=== PATIENT | female | born 1985 | race Caucasian/White ===

== ENCOUNTER 2018-07-16 12:26 | Observation (INO) | payer MEDICAID ==
[2018-07-16] MEDS ORDERED: Sodium Chloride 0.9% 10 ML Syringe FLUSH PRN ×2 (12:29→14:06)
[2018-07-16] MEDS ORDERED: Sodium Chloride 0.9% 2.5 ML Syringe FLUSH PRN ×2 (12:29→14:06)
--- NOTE | 2018-07-16 12:35 | EDM.PDOC ---
ED HPI GENERAL MEDICAL PROBLEM - General Chief Complaint: Neuro Symptoms/Deficits Stated Complaint: POSSIBLE STROKE Time Seen by Provider: 07/16/18 12:33 Source of Information: Reports: Patient, Family History Limitations: Reports: Altered Mental Status - History of Present Illness INITIAL COMMENTS - FREE TEXT/NARRATIVE: HISTORY AND PHYSICAL: []33-year-old female presenting with altered mental status slurred of speech History of Present Illness: []Last known normal was last night when she went to bed This morning when she got up she had weakness to her arms and slurring of speech which now she denies but states it was quite evident Review of Systems: As per history of present illness and below otherwise all systems reviewed and negative. Past medical history: As per history of present illness and as reviewed below otherwise noncontributory. Surgical history: As per history of present illness and as reviewed below otherwise noncontributory. Social history: No reported history of drug or alcohol abuse. Family history: As per history of present illness and as reviewed below otherwise noncontributory. Physical exam: Alert female answering questions with short sentences. HEENT: Atraumatic, normocehpalic, pupils reactive, negative for conjunctival pallor or scleral icterus, mucous membranes moist, throat clear, neck supple, nontender, trachea midline. Lungs: Clear to auscultation, breath sounds equal bilaterally, chest non tender. Heart: S1S2, regular, negative for clicks, rubs, or JVD. Abdomen: Soft, nondistended, nontender. Negative for masses or hepatossplenmegaly. Negative for costovertebral tenderness. Pelvis: Stable nontender. Genitourinary: Deferred. Rectal: Deferred Extremities: Atraumatic, negative for cords or calf pain. Neurovascular unremarkable. Neuro: Awake, alert, oriented. Cranial nerves II through XII unremarkable. Cerebellum unremarkable. Motor and sensory unremarkable throughout. Exam nonfocal. 1242 CT reported as normal no bleed noted no masses no lesions Patient's said that she woke up and was fine and the phone rang it was a healthcare recruiter to talk about her oldest son who wants to join [employer] and symptoms started I spoke with Dr. Encarnacion for Dr. Nolasco who has accepted this patient for observation Diagnostics: []CBC CMP PT/INR EKG head CT Therapeutics: []Normal saline Impression: []TIA Plan: []Refer to observation on telemetry Definitive disposition and diagnosis as appropriate pending reevaluation and review of above. Onset: Today, Sudden - Related Data Allergies Allergy/AdvReac Type Severity Reaction Status Date / Time Penicillins Allergy Hives Verified 07/16/18 12:59 Home Meds: Home Meds Losartan [Cozaar] 25 mg PO DAILY 07/16/18 [History] Zolpidem Tartrate [Ambien] 5 mg PO DAILY 07/16/18 [History] amLODIPine [Norvasc] 2.5 mg PO DAILY 07/16/18 [History] ED ROS GENERAL - Review of Systems Review Of Systems: See Below ED EXAM, NEURO - Physical Exam Exam: See Below EKG INTERPRETATION EKG Date: 07/16/18 Rhythm: NSR Comparison: NA - No Prior EKG Course - Vital Signs Last Recorded V/S: Last Vital Signs Temp 36.8 C 07/16/18 12:26 Pulse 118 H 07/16/18 12:26 Resp 18 07/16/18 12:26 BP 192/107 H 07/16/18 12:26 Pulse Ox 98 07/16/18 12:26 - Orders/Labs/Meds Orders: Active Orders 24 hr Category Date Time Status Patient Status [ADT] Stat ADT 07/16/18 13:57 Ordered Assess Neurological Status [RC] ASDIRECTED Care 07/16/18 12:29 Active Bedrest [RC] ASDIRECTED Care 07/16/18 12:29 Active Blood Glucose Check, Bedside [RC] STAT Care 07/16/18 12:29 Active Cardiac Monitoring [RC] . DIRECTED Care 07/16/18 12:29 Active EKG Documentation Completion [RC] STAT Care 07/16/18 12:29 Active Height and Weight [RC] UPON Care 07/16/18 12:29 Active Initiate Acute Stroke Protocol [RC] STAT Care 07/16/18 12:29 Active NIH Stroke Scale [RC] ASDIRECTED Care 07/16/18 12:29 Active Nursing Bedside Swallow Screen [RC] ASDIRECTED Care 07/16/18 12:29 Active Oxygen Therapy [RC] ASDIRECTED Care 07/16/18 12:29 Active Stroke Education, General [RC] Click to Edit Care 07/16/18 12:29 Active Vital Signs [RC] Q15M Care 07/16/18 12:29 Active COMPREHENSIVE METABOLIC PN,CMP [CHEM] Stat Lab 07/16/18 12:25 Results TROPONIN I [CHEM] Stat Lab 07/16/18 12:25 Results TSH [CHEM] Stat Lab 07/16/18 12:25 Results Sodium Chloride 0.9% [Saline Flush] Med 07/16/18 12:29 Active 10 ml FLUSH ASDIRECTED PRN Sodium Chloride 0.9% [Saline Flush] Med 07/16/18 12:29 Active 2.5 ml FLUSH ASDIRECTED PRN Peripheral IV Insertion Adult [OM.PC] Stat Oth 07/16/18 12:29 Ordered Peripheral IV Insertion Adult [OM.PC] Stat Ot 07/16/18 12:29 Ordered Resuscitation Status Stat Resus Stat 07/16/18 12:29 Ordered Medication Orders Sodium Chloride (Saline Flush) 10 ml FLUSH ASDIRECTED PRN PRN Reason: Keep Vein Open Sodium Chloride (Saline Flush) 2.5 ml FLUSH ASDIRECTED PRN PRN Reason: Keep Vein Open Labs: Laboratory Tests 07/16/18 07/16/18 07/16/18 Range/Units 12:25 12:25 12:25 WBC 7.72 (4.0-11.0) K/uL RBC 4.83 (4.30-5.90) M/uL Hgb 14.9 (12.0-16.0) g/dL Hct 43.5 (36.0-46.0) % MCV 90.1 (80.0-98.0) fL MCH 30.8 (27.0-32.0) pg MCHC 34.3 (31.0-37.0) g/dL RDW Std Deviation 49.0 (28.0-62.0) fl RDW Coeff of [place] 15 (11.0-15.0) % Plt Count 245 (150-400) K/uL MPV 9.10 (7.40-12.00) fL Neut % (Auto) 61.7 (48.0-80.0) % Lymph % (Auto) 29.7 (16.0-40.0) % [place] % (Auto) 7.1 (0.0-15.0) % Eos % (Auto) 1.2 (0.0-7.0) % Baso % (Auto) 0.3 (0.0-1.5) % Neut # (Auto) 4.8 (1.4-5.7) K/uL Lymph # (Auto) 2.3 (0.6-2.4) K/uL [place] # (Auto) 0.6 (0.0-0.8) K/uL Eos # (Auto) 0.1 (0.0-0.7) K/uL Baso # (Auto) 0.0 (0.0-0.1) K/uL Nucleated RBC % 0.0 /100WBC Nucleated RBCs # 0 K/uL INR 0.98 APTT 25.6 (18.6-31.3) SEC Sodium 139 (136-145) mmol/L Potassium 3.9 (3.5-5.1) mmol/L Chloride 103 (98-107) mmol/L Carbon Dioxide 21.8 (21.0-32.0) mmol/L BUN 17 (7.0-18.0) mg/dL Creatinine 1.2 H (0.6-1.0) mg/dL Est Cr Clr Drug Dosing 61.26 mL/min Estimated GFR (MDRD) 51.1 ml/min Glucose 115 H (74-106) mg/dL Calcium 9.3 (8.5-10.1) mg/dL Total Bilirubin 0.3 (0.2-1.0) mg/dL AST 14 L (15-37) IU/L ALT 27 (14-63) IU/L Alkaline Phosphatase 105 (46-116) U/L Troponin I < 0.050 (0.000-0.056) ng/mL Total Protein 8.0 (6.4-8.2) g/dL Albumin 4.2 (3.4-5.0) g/dL Globulin 3.8 H (2.0-3.5) g/dL Albumin/Globulin Ratio 1.1 L (1.3-2.8) Urine Color Urine Appearance Urine pH (5.0-8.0) Ur Specific [place] (1.001-1.035) Urine Protein (NEGATIVE) mg/dL Urine Glucose (UA) (NEGATIVE) mg/dL Urine Ketones (NEGATIVE) mg/dL Urine Occult Blood (NEGATIVE) Urine Nitrite (NEGATIVE) Urine Bilirubin (NEGATIVE) Urine Urobilinogen (<2.0) EU/dL Ur Leukocyte Esterase (NEGATIVE) Urine RBC (0-2/HPF) Urine WBC (0-5/HPF) Ur Epithelial Cells (NONE-FEW) Amorphous Sediment (NEGATIVE) Urine Bacteria (NEGATIVE) 07/16/18 Range/Units 13:21 WBC (4.0-11.0) K/uL RBC (4.30-5.90) M/uL Hgb (12.0-16.0) g/dL Hct (36.0-46.0) % MCV (80.0-98.0) fL MCH (27.0-32.0) pg MCHC (31.0-37.0) g/dL RDW Std Deviation (28.0-62.0) fl RDW Coeff of [place] (11.0-15.0) % Plt Count (150-400) K/uL MPV (7.40-12.00) fL Neut % (Auto) (48.0-80.0) % Lymph % (Auto) (16.0-40.0) % [place] % (Auto) (0.0-15.0) % Eos % (Auto) (0.0-7.0) % Baso % (Auto) (0.0-1.5) % Neut # (Auto) (1.4-5.7) K/uL Lymph # (Auto) (0.6-2.4) K/uL [place] # (Auto) (0.0-0.8) K/uL Eos # (Auto) (0.0-0.7) K/uL Baso # (Auto) (0.0-0.1) K/uL Nucleated RBC % /100WBC Nucleated RBCs # K/uL INR APTT (18.6-31.3) SEC Sodium (136-145) mmol/L Potassium (3.5-5.1) mmol/L Chloride (98-107) mmol/L Carbon Dioxide (21.0-32.0) mmol/L BUN (7.0-18.0) mg/dL Creatinine (0.6-1.0) mg/dL Est Cr Clr Drug Dosing mL/min Estimated GFR (MDRD) ml/min Glucose (74-106) mg/dL Calcium (8.5-10.1) mg/dL Total Bilirubin (0.2-1.0) mg/dL AST (15-37) IU/L ALT (14-63) IU/L Alkaline Phosphatase (46-116) U/L Troponin I (0.000-0.056) ng/mL Total Protein (6.4-8.2) g/dL Albumin (3.4-5.0) g/dL Globulin (2.0-3.5) g/dL Albumin/Globulin Ratio (1.3-2.8) Urine Color YELLOW Urine Appearance SLT CLOUDY Urine pH 6.0 (5.0-8.0) Ur Specific [place] 1.020 (1.001-1.035) Urine Protein NEGATIVE (NEGATIVE) mg/dL Urine Glucose (UA) NEGATIVE (NEGATIVE) mg/dL Urine Ketones NEGATIVE (NEGATIVE) mg/dL Urine Occult Blood TRACE-INTACT (NEGATIVE) Urine Nitrite POSITIVE H (NEGATIVE) Urine Bilirubin NEGATIVE (NEGATIVE) Urine Urobilinogen 0.2 (<2.0) EU/dL Ur Leukocyte Esterase LARGE (NEGATIVE) Urine RBC 0-2 (0-2/HPF) Urine WBC 40-50 (0-5/HPF) Ur Epithelial Cells FEW (NONE-FEW) Amorphous Sediment FEW (NEGATIVE) Urine Bacteria 1+ H (NEGATIVE) Meds: Medications Generic Name Dose Route Start Last Admin Trade Name Freq PRN Reason Stop Dose Admin Sodium Chloride 10 ml 07/16/18 12:29 Saline Flush FLUSH ASDIRECTED PRN Keep Vein Open Sodium Chloride 2.5 ml 07/16/18 12:29 Saline Flush FLUSH ASDIRECTED PRN Keep Vein Open Discontinued Medications Generic Name Dose Route Start Last Admin Trade Name Freq PRN Reason Stop Dose Admin Lorazepam 1 mg 07/16/18 12:48 07/16/18 13:08 Ativan IVPUSH 07/16/18 12:49 1 mg ONETIME ONE Administration Departure - Departure Time of Disposition: 14:00 Disposition: Refer to Observation Condition: Fair Clinical Impression: TIA (transient ischemic attack) - Discharge Information Referrals: PCP,None [Primary Care Provider] - Forms: ED Department Discharge - My Orders Last 24 Hours: My Active Orders 07/16/18 12:25 COMPREHENSIVE METABOLIC PN,CMP [CHEM] Stat TROPONIN I [CHEM] Stat TSH [CHEM] Stat 07/16/18 12:29 Assess Neurological Status [RC] ASDIRECTED Bedrest [RC] ASDIRECTED Blood Glucose Check, Bedside [RC] STAT Cardiac Monitoring [RC] . DIRECTED EKG Documentation Completion [RC] STAT Height and Weight [RC] UPON Initiate Acute Stroke Protocol [RC] STAT NIH Stroke Scale [RC] ASDIRECTED Nursing Bedside Swallow Screen [RC] ASDIRECTED Oxygen Therapy [RC] ASDIRECTED Stroke Education, General [RC] Click to Edit Vital Signs [RC] Q15M Sodium Chloride 0.9% [Saline Flush] 10 ml FLUSH ASDIRECTED PRN Sodium Chloride 0.9% [Saline Flush] 2.5 ml FLUSH ASDIRECTED PRN Peripheral IV Insertion Adult [OM.PC] Stat Peripheral IV Insertion Adult [OM.PC] Stat Resuscitation Status Stat 07/16/18 13:57 Patient Status [ADT] Stat - Assessment/Plan Last 24 Hours: My Active Orders 07/16/18 12:25 COMPREHENSIVE METABOLIC PN,CMP [CHEM] Stat TROPONIN I [CHEM] Stat TSH [CHEM] Stat 07/16/18 12:29 Assess Neurological Status [RC] ASDIRECTED Bedrest [RC] ASDIRECTED Blood Glucose Check, Bedside [RC] STAT Cardiac Monitoring [RC] . DIRECTED EKG Documentation Completion [RC] STAT Height and Weight [RC] UPON Initiate Acute Stroke Protocol [RC] STAT NIH Stroke Scale [RC] ASDIRECTED Nursing Bedside Swallow Screen [RC] ASDIRECTED Oxygen Therapy [RC] ASDIRECTED Stroke Education, General [RC] Click to Edit Vital Signs [RC] Q15M Sodium Chloride 0.9% [Saline Flush] 10 ml FLUSH ASDIRECTED PRN Sodium Chloride 0.9% [Saline Flush] 2.5 ml FLUSH ASDIRECTED PRN Peripheral IV Insertion Adult [OM.PC] Stat Peripheral IV Insertion Adult [OM.PC] Stat Resuscitation Status Stat 07/16/18 13:57 Patient Status [ADT] Stat
--- NOTE | 2018-07-16 12:45 | CT ---
EXAMINATION: Non contrast CT head. Coronal and sagittal reformats. HISTORY: Stroke code FINDINGS: No evidence of intra or extra axial hemorrhage, mass, midline shift, hydrocephalus or edema. No hypoattenuation changes in the major vascular territories to suggest acute infarct. No abnormal intracranial calcifications are detected. No evidence of substantial vascular calcificat ions. Paranasal sinuses are well aerated without substantial findings. Trace fluid within the left mastoid air cells. Pituitary fossa appears unremarkable. Calvarium is intact. No evidence of skull fracture. IMPRESSION: 1. No acute intracranial findings. The findings were called to the ER at 12:42 PM.
[2018-07-16] MEDS ORDERED: LORazepam 2 MG/ML SDV IVPUSH ONE (12:48)
[2018-07-16 13:25] LABS: CHLORIDE,CL 103 mmol/L (98-107); SODIUM,NA 139 mmol/L (136-145)
[2018-07-16] MEDS ORDERED: Acetaminophen 325 MG Tab PO PRN (14:03)
[2018-07-16] MEDS ORDERED: Morphine 10 MG/ML Syringe IVPUSH PRN (14:06)
[2018-07-16] MEDS ORDERED: Ondansetron 4 MG/2 ML SDV IVPUSH PRN (14:06)
[2018-07-16] MEDS ORDERED: Enoxaparin 40 MG/0.4 ML Syringe SUBCUT SCH (14:15)
[2018-07-16] MEDS ORDERED: Morphine 2 MG/ML Syringe IVPUSH PRN (17:17)
[2018-07-16] MEDS ORDERED: Levofloxacin/Dextrose 5%-Water 750 MG in Premix Bag 1 BAG IV SCH (17:30)
--- NOTE | 2018-07-16 18:48 | PCM.HP ---
H&P History of Present Illness - General Date of Service: 07/16/18 Admit Problem/Dx: Admission Diagnosis/Problem Admission Diagnosis/Problem TIA, Transient ischemic attack - History of Present Illness Initial Comments - Free Text/Narative: This is a 33-year-old female that is admitted for TIA/stroke workup. Patient and state that this morning patient had become increasingly stressed as her son is going of to the in a year and this resulted in increased anxiety and possible panic attack and patient's felt that she had started to slur her speech and appeared to possibly have some neurological dysfunction in her left eye region. He denied any facial droop. Patient has never had neurological dysfunction such as this in the past, she's never had any cerebrovascular event in the past, she is being treated for resistant hypertension on 3 separate antihypertensives. Patient also has a significant clinical history of migraine headaches which are stress-induced however she does deny having a headache throughout the entire day today. CT of the head does not show any acute changes. The urinary analysis does indicate a possible urinary tract infection patient is denying any burning on urination, urine culture has been obtained and the patient has been placed on Levaquin. Patient' s blood pressures have normalized since she is arrived on the floor. - Related Data Allergies/Adverse Reactions: Allergies Allergy/AdvReac Type Severity Reaction Status Date / Time Penicillins Allergy Anaphylactic Verified 07/16/18 15:46 Shock Home Medications: Home Meds Losartan [Cozaar] 100 mg PO DAILY 07/16/18 [History] Mirtazapine 45 mg PO BEDTIME 07/16/18 [History] Zolpidem Tartrate [Ambien] 10 mg PO BEDTIME PRN 07/16/18 [History] amLODIPine [Norvasc] 10 mg PO DAILY 07/16/18 [History] hydroCHLOROthiazide [Hydrochlorothiazide] 12.5 mg PO DAILY 07/16/18 [History] Past Medical History - Past Health History Medical/Surgical History: Denies Medical/Surgical History Cardiovascular History: Reports: Hypertension Psychiatric History: Reports: Anxiety, Depression - Infectious Disease History Infectious Disease History: Reports: Chicken Pox, MRSA - Past Surgical History Cardiovascular Surgical History: Reports: None Social & Family History - Family History Family Medical History: Noncontributory - Tobacco Use Smoking Status *Q: Never Smoker Tobacco Use Comment: pt vapes Second Hand Smoke Exposure: No - Caffeine Use Caffeine Use: Reports: Other Caffeine Use Comment: not very often - Recreational Drug Use Recreational Drug Use: No H&P Review of Systems - Review of Systems: Review Of Systems: ROS reveals no pertinent complaints other than HPI. Exam - Exam Exam: See Below - Vital Signs Vital Signs: Last Vital Signs Temp 36.8 C 07/16/18 14:43 Pulse 112 H 07/16/18 14:43 Resp 18 07/16/18 14:43 BP 137/92 H 07/16/18 14:43 Pulse Ox 98 07/16/18 14:43 Weight: 73.709 kg - Exam General: Alert, Oriented, Cooperative HEENT: Conjunctiva Clear Neck: Supple, Trachea Midline Lungs: Clear to Auscultation, Normal Respiratory Effort Cardiovascular: Regular Rate, Regular Rhythm GI/Abdominal Exam: Normal Bowel Sounds Back Exam: Normal Inspection Extremities: Normal Inspection, Normal Range of Motion, Non-Tender, No Pedal Edema Skin: Warm, Dry, Intact Neurological: Cranial Nerves Intact, Reflexes Equal Bilateral, Strength Equal Bilateral, Normal Gait, Normal Speech, Normal Tone, Sensation Intact Neuro Extensive - Mental Status: Alert, Oriented x3, Normal Mood/Affect Neuro Extensive - Motor, Sensory, Reflexes: CN II-XII Intact, Normal Gait, Normal Reflexes - Patient Data Lab Results Last 24 hrs: Laboratory Results - last 24 hr 07/16/18 07/16/18 07/16/18 Range/Units 12:25 12:25 12:25 WBC 7.72 (4.0-11.0) K/uL RBC 4.83 (4.30-5.90) M/uL Hgb 14.9 (12.0-16.0) g/dL Hct 43.5 (36.0-46.0) % MCV 90.1 (80.0-98.0) fL MCH 30.8 (27.0-32.0) pg MCHC 34.3 (31.0-37.0) g/dL RDW Std Deviation 49.0 (28.0-62.0) fl RDW Coeff of [place] 15 (11.0-15.0) % Plt Count 245 (150-400) K/uL MPV 9.10 (7.40-12.00) fL Neut % (Auto) 61.7 (48.0-80.0) % Lymph % (Auto) 29.7 (16.0-40.0) % [place] % (Auto) 7.1 (0.0-15.0) % Eos % (Auto) 1.2 (0.0-7.0) % Baso % (Auto) 0.3 (0.0-1.5) % Neut # (Auto) 4.8 (1.4-5.7) K/uL Lymph # (Auto) 2.3 (0.6-2.4) K/uL [place] # (Auto) 0.6 (0.0-0.8) K/uL Eos # (Auto) 0.1 (0.0-0.7) K/uL Baso # (Auto) 0.0 (0.0-0.1) K/uL Nucleated RBC % 0.0 /100WBC Nucleated RBCs # 0 K/uL INR 0.98 APTT 25.6 (18.6-31.3) SEC Sodium 139 (136-145) mmol/L Potassium 3.9 (3.5-5.1) mmol/L Chloride 103 (98-107) mmol/L Carbon Dioxide 21.8 (21.0-32.0) mmol/L BUN 17 (7.0-18.0) mg/dL Creatinine 1.2 H (0.6-1.0) mg/dL Est Cr Clr Drug Dosing 61.26 mL/min Estimated GFR (MDRD) 51.1 ml/min Glucose 115 H (74-106) mg/dL Calcium 9.3 (8.5-10.1) mg/dL Total Bilirubin 0.3 (0.2-1.0) mg/dL AST 14 L (15-37) IU/L ALT 27 (14-63) IU/L Alkaline Phosphatase 105 (46-116) U/L Troponin I < 0.050 (0.000-0.056) ng/mL Total Protein 8.0 (6.4-8.2) g/dL Albumin 4.2 (3.4-5.0) g/dL Globulin 3.8 H (2.0-3.5) g/dL Albumin/Globulin Ratio 1.1 L (1.3-2.8) TSH 3rd Generation 2.52 (0.36-3.74) uIU/mL Urine Color Urine Appearance Urine pH (5.0-8.0) Ur Specific [place] (1.001-1.035) Urine Protein (NEGATIVE) mg/dL Urine Glucose (UA) (NEGATIVE) mg/dL Urine Ketones (NEGATIVE) mg/dL Urine Occult Blood (NEGATIVE) Urine Nitrite (NEGATIVE) Urine Bilirubin (NEGATIVE) Urine Urobilinogen (<2.0) EU/dL Ur Leukocyte Esterase (NEGATIVE) Urine RBC (0-2/HPF) Urine WBC (0-5/HPF) Ur Epithelial Cells (NONE-FEW) Amorphous Sediment (NEGATIVE) Urine Bacteria (NEGATIVE) 07/16/18 Range/Units 13:21 WBC (4.0-11.0) K/uL RBC (4.30-5.90) M/uL Hgb (12.0-16.0) g/dL Hct (36.0-46.0) % MCV (80.0-98.0) fL MCH (27.0-32.0) pg MCHC (31.0-37.0) g/dL RDW Std Deviation (28.0-62.0) fl RDW Coeff of [place] (11.0-15.0) % Plt Count (150-400) K/uL MPV (7.40-12.00) fL Neut % (Auto) (48.0-80.0) % Lymph % (Auto) (16.0-40.0) % [place] % (Auto) (0.0-15.0) % Eos % (Auto) (0.0-7.0) % Baso % (Auto) (0.0-1.5) % Neut # (Auto) (1.4-5.7) K/uL Lymph # (Auto) (0.6-2.4) K/uL [place] # (Auto) (0.0-0.8) K/uL Eos # (Auto) (0.0-0.7) K/uL Baso # (Auto) (0.0-0.1) K/uL Nucleated RBC % /100WBC Nucleated RBCs # K/uL INR APTT (18.6-31.3) SEC Sodium (136-145) mmol/L Potassium (3.5-5.1) mmol/L Chloride (98-107) mmol/L Carbon Dioxide (21.0-32.0) mmol/L BUN (7.0-18.0) mg/dL Creatinine (0.6-1.0) mg/dL Est Cr Clr Drug Dosing mL/min Estimated GFR (MDRD) ml/min Glucose (74-106) mg/dL Calcium (8.5-10.1) mg/dL Total Bilirubin (0.2-1.0) mg/dL AST (15-37) IU/L ALT (14-63) IU/L Alkaline Phosphatase (46-116) U/L Troponin I (0.000-0.056) ng/mL Total Protein (6.4-8.2) g/dL Albumin (3.4-5.0) g/dL Globulin (2.0-3.5) g/dL Albumin/Globulin Ratio (1.3-2.8) TSH 3rd Generation (0.36-3.74) uIU/mL Urine Color YELLOW Urine Appearance SLT CLOUDY Urine pH 6.0 (5.0-8.0) Ur Specific [place] 1.020 (1.001-1.035) Urine Protein NEGATIVE (NEGATIVE) mg/dL Urine Glucose (UA) NEGATIVE (NEGATIVE) mg/dL Urine Ketones NEGATIVE (NEGATIVE) mg/dL Urine Occult Blood TRACE-INTACT (NEGATIVE) Urine Nitrite POSITIVE H (NEGATIVE) Urine Bilirubin NEGATIVE (NEGATIVE) Urine Urobilinogen 0.2 (<2.0) EU/dL Ur Leukocyte Esterase LARGE (NEGATIVE) Urine RBC 0-2 (0-2/HPF) Urine WBC 40-50 (0-5/HPF) Ur Epithelial Cells FEW (NONE-FEW) Amorphous Sediment FEW (NEGATIVE) Urine Bacteria 1+ H (NEGATIVE) Result Diagrams: 07/16/18 12:25 07/16/18 12:25 Problem List Initiated/Reviewed/Updated: Yes Orders Last 24hrs: Active Orders 24 hr Category Date Time Status Patient Status [ADT] Stat ADT 07/16/18 13:57 Active Assess Neurological Status [RC] ASDIRECTED Care 07/16/18 12:29 Active Communication Order [RC] ASDIRECTED Care 07/16/18 14:03 Active Head of Bed Elevation [RC] ASDIRECTED Care 07/16/18 14:03 Active NIH Stroke Scale [RC] ASDIRECTED Care 07/16/18 12:29 Active Notify Provider Status Change [RC] ASDIRECTED Care 07/16/18 14:03 Active Notify Provider Vital Signs [RC] ASDIRECTED Care 07/16/18 14:03 Active Nursing Bedside Swallow Screen [RC] ASDIRECTED Care 07/16/18 12:29 Active Stroke Education, General [RC] Click to Edit Care 07/16/18 12:29 Active Telemetry Monitoring [Cardiac Monitoring] [RC] . Care 07/16/18 14:05 Active DIRECTED Up With Assistance [RC] ASDIRECTED Care 07/16/18 14:06 Active VTE/DVT Education [RC] PER UNIT ROUTINE Care 07/16/18 14:06 Active PT Evaluation and Treatment [CONS] Routine Cons 07/16/18 14:03 Active [employer] Evaluation and Treatment [CONS] Routine Cons 07/16/18 14:04 Active Heart Healthy Diet [DIET] Diet 07/17/18 Breakfast Active CULTURE URINE [RM] Stat Lab 07/16/18 13:21 Received Acetaminophen [Tylenol] Med 07/16/18 14:03 Active 650 mg PO Q4H PRN Enoxaparin [Lovenox] Med 07/16/18 14:15 Active 40 mg SUBCUT Q24H Levofloxacin/Dextrose 5%-Water [Levaquin in D5W 750 MG/ Med 07/16/18 17:30 Active 150 ML] 750 mg Premix Bag 1 bag IV Q24H Morphine Med 07/16/18 17:17 Active 2 mg IVPUSH Q2H PRN Ondansetron [Zofran] Med 07/16/18 14:06 Active 4 mg IVPUSH Q4H PRN Sodium Chloride 0.9% [Saline Flush] Med 07/16/18 12:29 Active 10 ml FLUSH ASDIRECTED PRN Sodium Chloride 0.9% [Saline Flush] Med 07/16/18 14:06 Active 10 ml FLUSH ASDIRECTED PRN Sodium Chloride 0.9% [Saline Flush] Med 07/16/18 12:29 Active 2.5 ml FLUSH ASDIRECTED PRN Sodium Chloride 0.9% [Saline Flush] Med 07/16/18 14:06 Active 2.5 ml FLUSH ASDIRECTED PRN atorvaSTATin [Lipitor] Med 07/16/18 21:00 Active 10 mg PO BEDTIME Peripheral IV Insertion Adult [OM.PC] Stat Oth 07/16/18 12:29 Ordered Peripheral IV Insertion Adult [OM.PC] Stat Oth 07/16/18 12:29 Ordered Saline Lock Insert [OM.PC] Routine Ot 07/16/18 14:06 Ordered Sequential Compression Device [OM.PC] Per Unit Routine Ot 07/16/18 14:06 Ordered Resuscitation Status Stat Resus Stat 07/16/18 12:29 Ordered Medication Orders Acetaminophen (Tylenol) 650 mg PO Q4H PRN PRN Reason: Fever Atorvastatin Calcium (Lipitor) 10 mg PO BEDTIME MATI Enoxaparin Sodium (Lovenox) 40 mg SUBCUT Q24H [facility] Last Admin: 07/16/18 15:44 Dose: 40 mg Levofloxacin/Dextrose 750 mg/ (Premix) 150 mls @ 100 mls/hr IV Q24H [facility] Last Admin: 07/16/18 18:33 Dose: 100 mls/hr Morphine Sulfate (Morphine) 2 mg IVPUSH Q2H PRN PRN Reason: Pain (severe 7-10) Stop: 07/17/18 14:07 Ondansetron HCl (Zofran) 4 mg IVPUSH Q4H PRN PRN Reason: Nausea/Vomiting Sodium Chloride (Saline Flush) 10 ml FLUSH ASDIRECTED PRN PRN Reason: Keep Vein Open Sodium Chloride (Saline Flush) 2.5 ml FLUSH ASDIRECTED PRN PRN Reason: Keep Vein Open Sodium Chloride (Saline Flush) 10 ml FLUSH ASDIRECTED PRN PRN Reason: Keep Vein Open Sodium Chloride (Saline Flush) 2.5 ml FLUSH ASDIRECTED PRN PRN Reason: Keep Vein Open Assessment/Plan Comment:: 3-year-old female presenting with acute neurological changes that resolved since arriving in the ER most likely etiology is a anxiety/panic attack versus possible migraine induced changes however patient will be assessed for any new onset focal neurological deficits that would indicate a possible TIA or for any cardiovascular related issue. Neuro checks every 4 hours, patient placed on telemetry, Labs in the a.m. anticipated discharge tomorrow if everything is within normal limits.
[2018-07-16] MEDS ORDERED: atorvaSTATin 10 MG Tab PO SCH (21:00)
== END 2018-07-17 12:15 | disposition home or self-care (01) ==
LOC: MW.ED 12:26 → MW.MS 13:57
PROVIDERS: ADMIT Internal Medicine; ATTEND Internal Medicine
DX: G45.9 Transient cerebral ischemic attack, unspecified (principal); N39.0 Urinary tract infection, site not specified; I10 Essential (primary) hypertension; F17.290 Nicotine dependence, other tobacco product, uncomplicated; F41.9 Anxiety disorder, unspecified; F32.9 Major depressive disorder, single episode, unspecified; Z79.899 Other long term (current) drug therapy; Z88.0 Allergy status to penicillin
CPT/HCPCS: 36415; 70450; 80053; 81001; 84443; 84484; 85025; 85610; 85730; 87086; 87088; 87186; 93005; 96374; 97161; 99285; J1650; J1956; J2060; 96372; 96375; G0378